=== PATIENT | female | born 1960 | race Hispanic/Latino ===

== ENCOUNTER 2020-04-05 08:06 | Emergency (ER) | payer BC ==
--- NOTE | 2020-04-05 08:43 | EDPHYS ---
Physician Documentation [facility] Name: Diann Morrow Age: 59 yrs Sex: Female : 1960 Arrival Date: 04/05/2020 Time: 08:10 Bed 20 Private MD: Kingsley Hook ED Physician Sam Jameson HPI: 04/05 08:43 This 59 yrs old Female presents to ER via Ambulatory with complaints of Knee jr8 Pain. 08:43 The patient presents with pain. The complaints affect the posterior aspect of right jr8 knee, right quadriceps and right knee. Context: The problem was sustained at home, resulted from twisting of the extremity. Onset: The symptoms/episode began/occurred acutely, yesterday. Modifying factors: The symptoms are alleviated by nothing. the symptoms are aggravated by movement, weight bearing, bending knee. Associated signs and symptoms: The patient has no apparent associated signs or symptoms. Severity of symptoms: At their worst the symptoms were mild, in the emergency department the symptoms are unchanged. The patient has not experienced similar symptoms in the past. The patient has not recently seen a physician. Historical: - Allergies: 08:15 Codeine; aa5 08:44 Codeine; jr10 - Home Meds: 08:44 losartan 100 mg oral tab [Active]; sertraline 100 mg oral tab [Active]; aspirin 81 mg jr10 Oral TbEC [Active]; rosuvastatin 10 mg oral tab [Active]; amlodipine 2.5 mg tab [Active]; 08:15 amlodipine 2.5 mg tab once daily [Active]; rosuvastatin 10 mg Oral tab once daily aa5 [Active]; aspirin 81 mg oral chew once daily [Active]; sertraline 100 mg Oral tab once daily [Active]; losartan 100 mg Oral tab once daily [Active]; - PMHx: 08:15 Hypertension; Hyperlipidemia; aa5 - Immunization history:: Adult Immunizations unknown, Adult Immunizations up to date. - Social history:: Smoking status: Patient denies any tobacco usage or history of. Smoking status: unknown. ROS: 08:56 Eyes: Negative for injury, pain, redness, and discharge, ENT: Negative for injury, jr8 pain, and discharge, Neck: Negative for injury, pain, and swelling, Cardiovascular: Negative for chest pain, palpitations, and edema, Respiratory: Negative for shortness of breath, cough, wheezing, and pleuritic chest pain, Abdomen/GI: Negative for abdominal pain, nausea, vomiting, diarrhea, and constipation, Back: Negative for injury and pain, Skin: Negative for injury, rash, and discoloration, Neuro: Negative for headache, weakness, numbness, tingling, and seizure. 08:56 MS/extremity: Positive for decreased range of motion, pain, tenderness, of the right leg. Exam: 08:56 Constitutional: This is a well developed, well nourished patient who is awake, alert, jr8 and in no acute distress. Cardiovascular: Regular rate and rhythm with a normal S1 and S2. No gallops, murmurs, or rubs. Normal PMI, no JVD. No pulse deficits. Respiratory: Lungs have equal breath sounds bilaterally, clear to auscultation and percussion. No rales, rhonchi or wheezes noted. No increased work of breathing, no retractions or nasal flaring. Back: No spinal tenderness. No costovertebral tenderness. Full range of motion. Skin: Warm, dry with normal turgor. Normal color with no rashes, no lesions, and no evidence of cellulitis. Neuro: Awake and alert, GCS 15, oriented to person, place, time, and situation. Cranial nerves II-XII grossly intact. Motor strength 5/5 in all extremities. Sensory grossly intact. Cerebellar exam normal. Normal gait. 08:56 Musculoskeletal/extremity: Extremities: grossly normal except: noted in the right leg: Patient with mild tenderness to palpation over the lateral aspect of knee extending to quadriceps. Pain with range of motion but with full ROM present. Pulses 2+ DP and PT bilaterally with normal sensation. Knee exam without any ligamentous laxity or instability. Rest of extremities unremarkable . Vital Signs: 08:11 BP 162 / 96; Pulse 80; Resp 18 S; Temp 98.8(O); Pulse Ox 99% on R/A; aa5 MDM: 08:12 Patient medically screened. 8 08:42 Data reviewed: vital signs, nurses notes, and as a result, I will discharge patient. jr8 Data interpreted: Pulse oximetry: on room air is 100 %. Interpretation: normal. Counseling: I had a detailed discussion with the patient and/or guardian regarding: the historical points, exam findings, and any diagnostic results supporting the discharge/admit diagnosis, the need for outpatient follow up, a orthopedic surgeon, to return to the emergency department if symptoms worsen or persist or if there are any questions or concerns that arise at home. Administered Medications: No medications were administered Disposition: 11:23 Co-signature as Attending Physician, Sam Jameson MD. rn Disposition: 04/05/20 08:42 Discharged to Home. Impression: Pain in right knee. - Condition is Stable. - Discharge Instructions: Musculoskeletal Pain, Knee Pain. - Prescriptions for meloxicam 15 mg Oral tablet - take 1 tablet by ORAL route once daily As needed; 20 tablet. - Work release form, Medication Reconciliation Form, Thank You Letter, Antibiotic Education, Prescription Opioid Use form. - Follow up: Lucho Iverson MD; When: 5 - 6 days; Reason: Recheck today's complaints, Continuance of care, Re-evaluation by your physician. - Problem is new. - Symptoms have improved. Signatures: Sam Jameson MD MD rn Calderon, Audri RN RN aa5 Yonatan Escobar PA PA jr8 Colleen Sheehan, RN RN jr10 Corrections: (The following items were deleted from the chart) 09:03 08:42 04/05/2020 08:42 Discharged to Home. Impression: Pain in right knee. Condition is jr10 Stable. Forms are Medication Reconciliation Form, Thank You Letter, Antibiotic Education, Prescription Opioid Use. Follow up: Lucho Iverson; When: 5 - 6 days; Reason: Recheck today's complaints, Continuance of care, Re-evaluation by your physician. Problem is new. Symptoms have improved. jr8
--- NOTE | 2020-04-05 08:43 | ER ---
Nurse's Notes [facility] Name: Diann Morrow Age: 59 yrs Sex: Female : 1960 Arrival Date: 04/05/2020 Time: 08:10 Bed 20 Private MD: Kingsley Hook Diagnosis: Pain in right knee Presentation: 04/05 08:11 Chief complaint: Patient states: "I dropped a little table on my right foot a few weeks aa5 ago and my foot is still hurting; I also have right knee pain after falling 2 weeks ago and I think I hurt my knee again yesterday stepping wrong down some steps". 08:11 Coronavirus screen: Client denies travel out of the [place] in the last 14 days. At this aa5 time, the client does not indicate any symptoms associated with coronavirus-19. 08:11 Acuity: FARAZ 4 aa5 08:11 Method Of Arrival: Ambulatory aa5 08:11 Ebola Screen: Patient negative for fever greater than or equal to 101.5 degrees aa5 Fahrenheit, and additional compatible Ebola Virus Disease symptoms. 08:11 Initial Sepsis Screen: Does the patient meet any 2 criteria? No. Patient's initial aa5 sepsis screen is negative. Does the patient have a suspected source of infection? No. Patient's initial sepsis screen is negative. Risk Assessment: Do you want to hurt yourself or someone else? Patient reports no desire to harm self or others. Onset of symptoms was March 2020. Historical: - Allergies: 08:15 Codeine; aa5 08:44 Codeine; jr10 - Home Meds: 08:44 losartan 100 mg oral tab [Active]; sertraline 100 mg oral tab [Active]; aspirin 81 mg jr10 Oral TbEC [Active]; rosuvastatin 10 mg oral tab [Active]; amlodipine 2.5 mg tab [Active]; 08:15 amlodipine 2.5 mg tab once daily [Active]; rosuvastatin 10 mg Oral tab once daily aa5 [Active]; aspirin 81 mg oral chew once daily [Active]; sertraline 100 mg Oral tab once daily [Active]; losartan 100 mg Oral tab once daily [Active]; - PMHx: 08:15 Hypertension; Hyperlipidemia; aa5 - Immunization history:: Adult Immunizations unknown, Adult Immunizations up to date. - Social history:: Smoking status: Patient denies any tobacco usage or history of. Smoking status: unknown. Screenin:44 Abuse screen: Denies threats or abuse. Denies injuries from another. Nutritional jr10 screening: No deficits noted. Tuberculosis screening: No symptoms or risk factors identified. Fall Risk Fall in past 12 months (25 points). No secondary diagnosis (0 pts). No IV (0 pts). Ambulatory Aid- None/Bed Rest/Nurse Assist (0 pts). Gait- Normal/Bed Rest/Wheelchair (0 pts) Mental Status- Oriented to own ability (0 pts). Assessment: 08:45 General: Appears in no apparent distress. Behavior is calm, cooperative, appropriate jr10 for age. Pain: Complains of pain in right knee Pain began 2 weeks ago. Derm: No deficits noted. No signs and/or symptoms reported regarding the dermatologic system. Musculoskeletal: No deficits noted. Range of motion: intact in all extremities, Swelling absent Reports pain in right knee. Injury Description: mechanical fall 2 weeks ago. Vital Signs: 08:11 BP 162 / 96; Pulse 80; Resp 18 S; Temp 98.8(O); Pulse Ox 99% on R/A; aa5 ED Course: 08:10 Patient arrived in ED. ag5 08:10 Kingsley Hook MD is Private Physician. ag5 08:11 Arm band placed on. aa5 08:12 [facility]. jr8 08:12 Sam Jameson MD is Attending Physician. jr8 08:37 Colleen Sheehan, RN is Primary Nurse. jr10 08:42 Triage completed. aa5 08:42 Lucho Iverson MD is Referral Physician. jr8 08:44 Patient has correct armband on for positive identification. Bed in low position. Call jr10 light in reach. Side rails up X 1. Cardiac monitoring not applicable on this patient. 08:45 No provider procedures requiring assistance completed. Patient did not have IV access jr10 during this emergency room visit. Administered Medications: No medications were administered Outcome: 08:42 Discharge ordered by . jr8 09:03 Discharged to home ambulatory. jr10 09:03 Condition: good 09:03 Discharge instructions given to patient, Instructed on discharge instructions, follow up and referral plans. Demonstrated understanding of instructions, follow-up care, medications, Prescriptions given X 1. 09:03 Patient left the ED. jr10 Signatures: Veronica Jarvis, RN RN [email or web address] Yonatan Escobar PA PA jr8 Natalie Narvaez5 Colleen Sheehan RN RN jr10
[2020-04-10 09:20] VITALS: BP 162/96; TEMP 98.8; O2SAT 99
== END 2020-04-05 09:03 | disposition home or self-care (01) ==
LOC: ER 08:06
DX: M25.561 Pain in right knee (principal); I10 Essential (primary) hypertension; E78.5 Hyperlipidemia, unspecified; Z79.82 Long term (current) use of aspirin; Z88.5 Allergy status to narcotic agent
CPT/HCPCS: 99282